=== PATIENT | male | born 1980 | race Caucasian/White ===

== ENCOUNTER → 2024-09-12 14:10 | Outpatient (REF) | payer OTHER, SELFPAY | LOC: HWRAD 14:10 | PROVIDERS: ATTENDING PHYSICIAN Orthopaedic Surgery; FAMILY PHYSICIAN Family Medicine | DX: M16.12 Unilateral primary osteoarthritis, left hip (principal) | CPT/HCPCS: 73700 ==

== ENCOUNTER → 2024-10-27 13:43 | Outpatient (REF) | payer OTHER, SELFPAY | LOC: RAD 13:43 | PROVIDERS: ATTENDING PHYSICIAN Physician Assistant; FAMILY PHYSICIAN Family Medicine | DX: I87.2 Venous insufficiency (chronic) (peripheral) (principal) | CPT/HCPCS: 93970 ==

== ENCOUNTER 2024-11-02 08:16 | Inpatient (IN) | payer OTHER, SELFPAY ==
[2024-10-18 14:09] VITALS: BMI 40.7
[2024-10-18 14:13] LABS: Hematocrit 49.7 % (39.0-52.0); Hemoglobin 16.3 g/dL (13.0-18.0); Mean Corp Hgb Conc. 32.8 g/dL (33.0-37.0); Mean Corpuscular Volume 89.2 fL (80.0-94.0); Platelet Count 303 10^3/uL (130-400); Red Cell Dist. Width 12.7 % (11.5-14.5)
[2024-10-18 14:36] LABS: Glycohemoglobin (HgbA1c) 5.1 % (4.0-5.6)
[2024-10-18 14:48] LABS: ALT (SGPT) 21 U/L (0-50); AST (SGOT) 18 U/L (17-59); Albumin 4.6 g/dl (3.5-5.0); Alkaline Phosphatase 109 U/L (38-126); Blood Urea Nitrogen 12 mg/dl (9-20); Calcium 9.9 mg/dl (8.4-10.2); Carbon Dioxide 21 mmol/L (22-30); Chloride 109 mmol/L (98-107); Estimated Creatinine Clearance > 125 ml/min; Glucose 103 mg/dl (70-99); Potassium 4.4 mmol/L (3.5-5.1); Sodium 140 mmol/L (135-145); Total Protein 7.2 g/dl (6.3-8.2); eGFR > 60.00
[2024-10-26 08:14] VITALS: BMI 40.7
--- NOTE | 2024-10-26 12:12 | CM ---
Addendum entered by Milly Ashraf RN 10/26/24 15:42:
CM spoke with patient's mother who stated that patient will need SNF. She is requesting [facility], but this CM stated patient may not be a candidate for [facility]. CM explained the placement process. Patient's mother stated that she would prefer if patient
was placed in [facility].
CM will follow for needs.
Original Note:
CM reviewed medical records. Patient confirmed demographics. Patient lives independently with his mother. Patient does not have a history of VN.Patient is active with his PCP. Patient has medication coverage. Patient stated that he has not made his
outpatient PT appointments as of this note, but stated that his mother will make those appointments.
Plan for discharge home with outpatient PT.
--- NOTE | 2024-10-30 10:46 | W.PN.UPDATE ---
Update Note
Progress Note Update
venous duplex negative for clot-no significant
[2024-11-02] VITALS (15 sets, daily range): BP systolic 112–143; BP diastolic 61–89; PULSE 83–84; O2SAT 95–96; BMI 40.7
[2024-11-02] MEDS: TYLENOL 650 MG PO ×3 (09:47→20:31)
[2024-11-02] MEDS: NORMOSOL-R/PLASMALYTE-A 1000 IV ×2 (09:48→18:40)
[2024-11-02] MEDS: CELEBREX 200 MG PO (10:08)
--- NOTE | 2024-11-02 14:54 | W.PN.UPDATE ---
Update Note
Progress Note Update
L hip OA s/p L BRANDON w/ Dr Reveles 11/02/24
DVT prophylaxis - ASA, b/l venous foot pumps
- Plasma flow devices HIGHLY encouraged to be used upon d/c
HTN - + parameters - monitor BP
Sinus tachycardia, asymptomatic - monitor on tele
- Continue Diltiazem but w/ SBP parameters to minimize post-surgical hypotension
- Continue Atenolol
Spastic hemiplegic cerebral palsy
Balance difficulties
- On fall precautions
- Work w/ PT and OT as able
- Given functional limitations, may benefit from SNF upon d/c
History of recurrent lower extremity cellulitis
Morbid obesity, BMI 40.6
- IV Ancef ron-op. Will benefit from Cefadroxil upon d/c
Peripheral vascular disease with associated lymphedema
Hypothyroidism
[2024-11-02] MEDS: ROXICODONE 5 MG PO (16:35)
[2024-11-02] MEDS: ASPIRIN 325 MG PO (18:38)
--- NOTE | 2024-11-02 19:49 | PTCARENOTE ---
Pt arrived from PACU at aprox 1745. Vitals stable. ST on monitor. Left hip dressing with small amount of drainage. Pt with no c/o pain. Mom at bedside helping to order dinner. Instructed pt to ring for assistance.
[2024-11-02] MEDS: ANCEF 5 IV (20:30)
[2024-11-02] MEDS: BACTROBAN 2% OINTMENT 1 APPLIC NASAL (20:30)
[2024-11-02] MEDS: DECADRON 4 MG PO (20:31)
[2024-11-02] MEDS: SENOKOT 17.2 MG PO (20:31)
[2024-11-02] MEDS: COLACE 100 MG PO (20:31)
[2024-11-02] MEDS: NEURONTIN 300 MG PO (20:33)
[2024-11-02] MEDS: SYNTHROID 25 MCG PO (20:33)
[2024-11-03] MEDS: TYLENOL PO (00:09)
[2024-11-03 03:00] VITALS: BP 125/85
[2024-11-03] MEDS: ANCEF 5 IV (03:10)
[2024-11-03] MEDS: TYLENOL 650 MG PO ×3 (03:12→12:32)
[2024-11-03 07:05] VITALS: BP 143/90
--- NOTE | 2024-11-03 09:05 | CM ---
Addendum entered by Milly Ashraf RN 11/03/24 13:06:
Patient has been authorization for [facility]
NRD
11/07
Authorization Number
[id number]
Addendum entered by Milly Ashraf RN 11/03/24 12:11:
[facility] is able to accept.
Pending authorization number.
[id number]
As per RN reviewer, case is being sent to manager medical writing.
Original Note:
CM reviewed medical records. CM sent referral to [facility] and [facility]. Cm will await clinical review by [facility].
[2024-11-03] MEDS: ASPIRIN 325 MG PO (09:21)
[2024-11-03] MEDS: TENORMIN 25 MG PO (09:21)
[2024-11-03] MEDS: COLACE 100 MG PO (09:22)
[2024-11-03] MEDS: DECADRON 4 MG PO (09:22)
[2024-11-03] MEDS: BACTROBAN 2% OINTMENT 1 APPLIC NASAL (09:22)
[2024-11-03] MEDS: SENOKOT 17.2 MG PO (09:22)
[2024-11-03] MEDS: MOBIC 15 MG PO (09:23)
[2024-11-03 11:14] VITALS: BP 134/86
--- NOTE | 2024-11-03 11:47 | W.PN.ORTHO ---
Today's Communication / Plan
-
Pt clinically stable for d/c.
D/c today pending insurance auth for [facility].
Assessment
.
Distal Motor Intact: Yes
Dressing:
Scant old incisional bleeding towards inferior end of dressing.
Assessment:
L hip OA s/p L BRANDON w/ Dr Reveles 11/02/24
DVT prophylaxis - ASA, b/l venous foot pumps
- Plasma flow devices HIGHLY encouraged to be used upon d/c
HTN - + parameters - BPs overall stable
Sinus tachycardia, asymptomatic - rhythm stable on tele (asymptomatic sinus tach - HRs in low 100s currently but due for Diltiazem).
- Continue Diltiazem but w/ SBP parameters to minimize post-surgical hypotension
- Continue Atenolol
Spastic hemiplegic cerebral palsy
Balance difficulties
- On fall precautions
- Work w/ PT and OT as able
- Given functional limitations, would benefit from rehab upon d/c
History of recurrent lower extremity cellulitis
Morbid obesity, BMI 40.6
- IV Ancef ron-op. Will benefit from Cefadroxil upon d/c
Peripheral vascular disease with associated lymphedema
Hypothyroidism
Plan
.
Surgery / Date: Ta T[facility] w/ Dr Reveles 11/02/24
DVT Prophylaxis: Aspirin
Activity:
Out of bed.
PT/OT
Discharge Plan: Rehab
Subjective
.
.:
Patient resting comfortably in bed.
L hip pain tolerable w/ minimal pain meds overnight.
Denies any new significant complaints.
Eager for possible d/c later today.
Vital Signs and Labs
.
Vital Signs and Labs:
Lab Results
10/18/24 13:24
10/18/24 13:24
Temp Pulse Resp BP Pulse Ox
98.0 F 108 16 143/90 93
11/03/24 07:05 11/03/24 07:05 11/03/24 07:05 11/03/24 07:05 11/03/24 07:05
Physical Exam
-
HEENT: No pallor, cyanosis, or jaundice. Throat clear.
NECK: Supple. No JVD.
RESPIRATORY: Lungs clear to auscultation anteriorly.
CVS: S1, S2 normal. RRR.�
ABDOMEN: Soft, non-tender. No distension. Morbidly obese.
EXTREMITIES: Chronic b/l LE edema. Strength equal, no calf pain with palpation/dorsiflexion. Calves soft.
MEMS DEVICE SCIENTIST: AOx3. No focal deficits. exterior interior specialist grossly intact
[2024-11-03 11:56] VITALS: BP 134/86; PULSE 106; O2SAT 98
[2024-11-03 12:05] VITALS: BP 134/86; O2SAT 98
[2024-11-03] MEDS: CARDIZEM CD 180 MG PO (12:31)
--- NOTE | 2024-11-03 13:10 | W.DS.TRANS ---
DC Summary - [facility] [employer]
-
Discharge Instructions:
Sleep Apnea Risk Intermediate
Discharge Diagnosis/Procedures L hip OA s/p L BRANDON w/ Dr Reveles 11/02/24
Diet Other diet
Additional Diets Diabetic carb controlled diet x1 week for wound
healing/infection prevention.
Adequate hydration, minimize opioids, and wear
TEDs stockings to prevent low blood pressure/
dizziness.
Activity As tolerated,With Walker
Driving Restrictions Not until seen by your Dr
Bathing Restrictions OK to Shower
Other Services PT,OT
Wound Care Dressing to be removed 1 week post-surgery
Instructions:
Stand-Alone Forms: Total Hip/Knee Replacement D/C
Changes to Home Medications: Yes
Discharge Medications:
DC Medications w/original date entered in [employer] [facility]
atenolol 25 mg tablet 25 mg PO DAILY Blood pressure 05/14/22
levothyroxine 25 mcg tablet 25 mcg PO HS Thyroid 05/14/22
mupirocin 2 % topical ointment 1 applic intranasal BID #1 tube 10/18/24
Saccharomyces boulardii 250 mg capsule (Florastor) 250 mg PO BID #14 caps 11/03/24
acetaminophen 325 mg tablet 650 mg (2 x 325 mg) PO Q4HWA #30 tabs 11/03/24
aspirin 325 mg tablet 325 mg PO DAILY #30 tabs 11/03/24
cefadroxil 500 mg capsule 500 mg PO BID #14 caps 11/03/24
dexamethasone 4 mg tablet 4 mg PO BID Anti-inflammatory #5 tabs 11/03/24
diltiazem HCl 180 mg capsule,extended release 24 hr 180 mg PO DAILY Heart disease/condition #1 cap 11/03/24
docusate sodium 100 mg capsule 100 mg PO BID #30 caps 11/03/24
famotidine 20 mg tablet (Pepcid) 20 mg PO HS #30 tabs 11/03/24
gabapentin 300 mg capsule 300 mg PO HS neuropathic pain/sleep #10 caps 11/03/24
meloxicam 15 mg tablet 15 mg PO DAILY #14 tabs 11/03/24
ondansetron HCl 4 mg tablet 4 mg PO Q6H PRN nausea and vomiting #30 tabs 11/03/24
oxycodone 5 mg tablet 5 - 10 mg (1 - 2 x 5 mg) PO Q6H PRN moderate-severe pain #15 tabs 11/03/24
sennosides 8.6 mg tablet (Uma-conchita) 17.2 mg (2 x 8.6 mg) PO BID #30 tabs 11/03/24
Home Medication Changes
Saccharomyces boulardii 250 mg capsule (Florastor) 250 mg PO BID #14 caps 11/03/24
acetaminophen 325 mg tablet 650 mg (2 x 325 mg) PO Q4HWA #30 tabs 11/03/24
aspirin 325 mg tablet 325 mg PO DAILY #30 tabs 11/03/24
cefadroxil 500 mg capsule 500 mg PO BID #14 caps 11/03/24
dexamethasone 4 mg tablet 4 mg PO BID Anti-inflammatory #5 tabs 11/03/24
docusate sodium 100 mg capsule 100 mg PO BID #30 caps 11/03/24
famotidine 20 mg tablet (Pepcid) 20 mg PO HS #30 tabs 11/03/24
gabapentin 300 mg capsule 300 mg PO HS neuropathic pain/sleep #10 caps 11/03/24
meloxicam 15 mg tablet 15 mg PO DAILY #14 tabs 11/03/24
ondansetron HCl 4 mg tablet 4 mg PO Q6H PRN nausea and vomiting #30 tabs 11/03/24
oxycodone 5 mg tablet 5 - 10 mg (1 - 2 x 5 mg) PO Q6H PRN moderate-severe pain #15 tabs 11/03/24
sennosides 8.6 mg tablet (Uma-conchita) 17.2 mg (2 x 8.6 mg) PO BID #30 tabs 11/03/24
Pending Results: No
--- NOTE | 2024-11-03 14:40 | PTCARENOTE ---
Gave report to receiving facility RN at [facility]
[2024-11-03 15:00] VITALS: BP 127/81
== END 2024-11-03 16:10 | DRG 470 ==
LOC: 2 SOUTH 08:16
PROVIDERS: ADMITTING PHYSICIAN Orthopaedic Surgery; FAMILY PHYSICIAN Family Medicine; REFERRING PHYSICIAN Internal Medicine Cardiovascular Disease
PROC: 0SRB0JA Replacement of Left Hip Joint with Synthetic Substitute, Uncemented, Open Approach (ICD-10-PCS; 2024-11-02)
DX: M16.12 Unilateral primary osteoarthritis, left hip (principal); G80.2 Spastic hemiplegic cerebral palsy; Z68.41 Body mass index [BMI] 40.0-44.9, adult; E66.01 Morbid (severe) obesity due to excess calories; I10 Essential (primary) hypertension; I73.9 Peripheral vascular disease, unspecified; I89.0 Lymphedema, not elsewhere classified; E03.9 Hypothyroidism, unspecified; Q65.89 Other specified congenital deformities of hip; Z88.2 Allergy status to sulfonamides
CPT/HCPCS: 36415; 73502; 80053; 83036; 85027; 87070; 97116; 97163; 97167; 97535